=== PATIENT | male | born 2000 | race Caucasian/White ===

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

== ENCOUNTER 2021-05-26 07:07 | Emergency (ER) | payer OTHER | END 2021-05-26 10:30 | disposition home or self-care (01) | LOC: ER1 07:07 | DX: B34.9 Viral infection, unspecified (principal); Z20.822 Contact with and (suspected) exposure to COVID-19 | CPT/HCPCS: 0240U; 71045; 87081; 87880; 99283 ==